=== PATIENT | male | born 1990 | race Hispanic/Latino ===

== ENCOUNTER 2017-12-16 17:57 | Emergency (ER) | payer SELFPAY ==
[2017-12-16] MEDS ORDERED: HYDROCODONE/CHLORPHEN 5 ML/OSYR ONE (21:13)
[2017-12-16] MEDS ORDERED: AZITHROMYCIN 250 MG TAB ONE (21:14)
--- NOTE | 2017-12-16 21:46 | RAD REPORT ---
EXAM DESCRIPTION: Asaf Single View12/16/2017 9:19 pm CLINICAL HISTORY: cough COMPARISON: none FINDINGS: The lungs appear clear of acute infiltrate. The heart is normal size IMPRESSION: No acute abnormalities displayed
--- NOTE | 2017-12-16 21:51 | EDPHYS ---
Physician Documentation [facility] Name: Jeremy Plasencia Age: 27 yrs Sex: Male : 1990 Arrival Date: 12/16/2017 Time: 18:01 Bed 12 Private MD: ED Physician Mohinder Mccarthy HPI: 12/16 18:51 This 27 yrs old Male presents to ER via Ambulatory with complaints of Chest kav Congestion. 20:32 Onset: The symptoms/episode began/occurred acutely, 1 week(s) ago. Associated signs and kav symptoms: Pertinent positives: congestion, cough. Modifying factors: The patient symptoms are alleviated by nothing, the patient symptoms are aggravated by nothing. The patient has not experienced similar symptoms in the past. The patient has not recently seen a physician. pt presents with acute c/o productive cough with green-colored phlegm, congestion. denies fever/chills. 20:34 The patient or guardian reports cough, that is intermittent, described as moderate, kav with productive sputum, that is green. Modifying factors:. Historical: - Allergies: 18:06 No Known Allergies; la1 - PMHx: 18:06 Hypertension; la1 - Immunization history:: Adult Immunizations up to date. - Social history:: Smoking status: Patient/guardian denies using tobacco. ROS: 20:34 Constitutional: Negative for fever, chills, and weight loss, Eyes: Negative for injury, kav pain, redness, and discharge, ENT: Negative for injury, pain, and discharge, Neck: Negative for injury, pain, and swelling, Cardiovascular: Negative for chest pain, palpitations, and edema, Abdomen/GI: Negative for abdominal pain, nausea, vomiting, diarrhea, and constipation, Back: Negative for injury and pain, : Negative for injury, bleeding, discharge, and swelling, MS/Extremity: Negative for injury and deformity, Skin: Negative for injury, rash, and discoloration, Neuro: Negative for headache, weakness, numbness, tingling, and seizure, Psych: Negative for depression, anxiety, suicide ideation, homicidal ideation, and hallucinations, Allergy/Immunology: Negative for hives, rash, and allergies, Endocrine: Negative for neck swelling, polydipsia, polyuria, polyphagia, and marked weight changes, Hematologic/Lymphatic: Negative for swollen nodes, abnormal bleeding, and unusual bruising. 20:34 Respiratory: Positive for cough, with green sputum. Exam: 20:34 Constitutional: This is a well developed, well nourished patient who is awake, alert, kav and in no acute distress. Head/Face: Normocephalic, atraumatic. Eyes: Pupils equal round and reactive to light, extra-ocular motions intact. Lids and lashes normal. Conjunctiva and sclera are non-icteric and not injected. Cornea within normal limits. Periorbital areas with no swelling, redness, or edema. ENT: Nares patent. No nasal discharge, no septal abnormalities noted. Tympanic membranes are normal and external auditory canals are clear. Oropharynx with no redness, swelling, or masses, exudates, or evidence of obstruction, uvula midline. Mucous membranes moist. Neck: Trachea midline, no thyromegaly or masses palpated, and no cervical lymphadenopathy. Supple, full range of motion without nuchal rigidity, or vertebral point tenderness. No Meningismus. Chest/axilla: Normal chest wall appearance and motion. Nontender with no deformity. No lesions are appreciated. Cardiovascular: Regular rate and rhythm with a normal S1 and S2. No gallops, murmurs, or rubs. Normal PMI, no JVD. No pulse deficits. Abdomen/GI: Soft, non-tender, with normal bowel sounds. No distension or tympany. No guarding or rebound. No evidence of tenderness throughout. Back: No spinal tenderness. No costovertebral tenderness. Full range of motion. Skin: Warm, dry with normal turgor. Normal color with no rashes, no lesions, and no evidence of cellulitis. MS/ Extremity: Pulses equal, no cyanosis. Neurovascular intact. Full, normal range of motion. Neuro: Awake and alert, GCS 15, oriented to person, place, time, and situation. Cranial nerves II-XII grossly intact. Motor strength 5/5 in all extremities. Sensory grossly intact. Cerebellar exam normal. Normal gait. Psych: Awake, alert, with orientation to person, place and time. Behavior, mood, and affect are within normal limits. 20:34 Respiratory: the patient does not display signs of respiratory distress, Respirations: normal, Breath sounds: bronchial sounds, that are moderate, are heard diffusely. Vital Signs: 18:06 BP 136 / 80; Pulse 92; Resp 19; Temp 98.3; Pulse Ox 100% on R/A; Weight 81.65 kg; la1 20:51 BP 130 / 66; Pulse 84; Resp 16; Pulse Ox 98% on R/A; mw2 MDM: 20:09 Medical screening is not applicable. [facility] 20:34 Data reviewed: vital signs, nurses notes, radiologic studies. [facility] 12/16 20:32 Order name: CXR XRAY; Complete Time: 21:49 [facility] 12/16 21:50 Interpretation: No acute disease. [facility] Administered Medications: 21:09 Drug: Tussionex Pennkinetic ER 5 ml Route: PO; la1 22:09 Follow up: Response: No adverse reaction bb 21: Drug: AZITHromycin 500 mg Route: PO; la1 22:09 Follow up: Response: No adverse reaction bb Disposition: 12/16/17 21:50 Discharged to Home. Impression: Bronchitis, not specified as acute or chronic. - Condition is Stable. - Discharge Instructions: Acute Bronchitis. - Prescriptions for Medrol (Geraldo) 4 mg Oral Tablets, Dose Pack - take 1 tablet by ORAL route as directed - follow package instructions; 1 packet. Guaifenesin AC 10- 100 mg/5 mL Oral Liquid - take 10 milliliter by ORAL route every 4 hours As needed; 240 milliliter. Zithromax Z- Geraldo 250 mg Oral Tablet - take 1 tablet by ORAL route as directed for 5 days Day 1 - take two (2) tablets one time. Day 2, 3, 4 , 5 take one (1) tablet once daily.; 6 tablet. - Medication Reconciliation Form, Thank You Letter, Work release form form. - Follow up: Private Physician; When: 1 - 2 days; Reason: If symptoms return, Recheck today's complaints, Continuance of care, Re-evaluation by your physician. - Problem is new. - Symptoms have improved. Addendum: 12/17/2017 22:30 Co-signature as Attending Physician, Mohinder Mccarthy MD I agree with the assessment and k dr plan of care. Signatures: Dispatcher [employer] EDSC Mohinder Mccarthy MD MD kdr Vern, Katherine, FOOD SERVICES MANAGER FOOD SERVICES MANAGER Mary Kay Kathleen RN RN bb Julio Madison RN RN la1 Corrections: (The following items were deleted from the chart) 12/16 22:10 21:50 12/16/2017 21:50 Discharged to Home. Impression: Bronchitis, not specified as bb acute or chronic. Condition is Stable. Discharge Instructions: Acute Bronchitis. Prescriptions for Zithromax Z-Geraldo 250 mg Oral Tablet - take 1 tablet by ORAL route as directed for 5 days Day 1 - take two (2) tablets one time. Day 2, 3, 4 , 5 take one (1) tablet once daily.; 6 tablet, Medrol (Geraldo) 4 mg Oral Tablets, Dose Pack - take 1 tablet by ORAL route as directed - follow package instructions; 1 packet, Guaifenesin AC 10-100 mg/5 mL Oral Liquid - take 10 milliliter by ORAL route every 4 hours As needed; 240 milliliter. and Forms are Medication Reconciliation Form, Thank You Letter, Antibiotic Education, Prescription Opioid Use. Follow up: Private Physician; When: 1 - 2 days; Reason: If symptoms return, Recheck today's complaints, Continuance of care, Re-evaluation by your physician. Problem is new. Symptoms have improved. kav
--- NOTE | 2017-12-16 21:51 | ER ---
Nurse's Notes [facility] Name: Jeremy Plasencia Age: 27 yrs Sex: Male : 1990 Arrival Date: 12/16/2017 Time: 18:01 Bed 12 Private MD: Diagnosis: Bronchitis, not specified as acute or chronic Presentation: 12/16 18:05 Presenting complaint: Patient states: cough and congestion for one week. Transition of la1 care: patient was not received from another setting of care. Onset of symptoms was December 16, 2017. Initial Sepsis Screen: Does the patient meet any 2 criteria? No. Patient's initial sepsis screen is negative. Does the patient have a suspected source of infection? No. Patient's initial sepsis screen is negative. Care prior to arrival: None. 18:05 Method Of Arrival: Ambulatory la1 18:05 Acuity: FABIÁN 4 la1 Triage Assessment: 18:07 General: Appears in no apparent distress. Behavior is calm, cooperative. Pain: Denies la1 pain. Respiratory: Airway is patent Respiratory effort is even, unlabored, Respiratory pattern is regular, symmetrical. Historical: - Allergies: 18:06 No Known Allergies; la1 - PMHx: 18:06 Hypertension; la1 - Immunization history:: Adult Immunizations up to date. - Social history:: Smoking status: Patient/guardian denies using tobacco. Screenin:38 Abuse screen: Denies threats or abuse. Nutritional screening: No deficits noted. la1 Nutritional screening: No deficits noted. Tuberculosis screening: No symptoms or risk factors identified. Fall Risk None identified. Assessment: 19:38 General: Appears in no apparent distress. Behavior is calm, cooperative. Pain: Denies la1 pain. Neuro: Level of Consciousness is awake, alert, obeys commands, Oriented to person, place, time, situation. Cardiovascular: Capillary refill < 3 seconds Patient's skin is warm and dry. Respiratory: Reports cough that is Airway is patent Respiratory effort is even, unlabored, Respiratory pattern is regular, symmetrical. GI: No signs and/or symptoms were reported involving the gastrointestinal system. : No signs and/or symptoms were reported regarding the genitourinary system. 21:08 Reassessment: Patient and/or family updated on plan of care and expected duration. Pain bb level reassessed. Patient is alert, oriented x 3, equal unlabored respirations, skin warm/dry/pink. 22:08 Reassessment: Patient and/or family updated on plan of care and expected duration. Pain bb level reassessed. Patient is alert, oriented x 3, equal unlabored respirations, skin warm/dry/pink. pt verbalized understanding of and agrees to plan of care discharge instructions given pt ambulated with steady gait to exit. Vital Signs: 18:06 BP 136 / 80; Pulse 92; Resp 19; Temp 98.3; Pulse Ox 100% on R/A; Weight 81.65 kg; la1 20:51 BP 130 / 66; Pulse 84; Resp 16; Pulse Ox 98% on R/A; mw2 ED Course: 18:01 Patient arrived in ED. mr 18:05 Triage completed. la1 18:06 Arm band placed on left wrist. la1 18:51 Kathia Adams FNP [facility]. kav 18:51 Mohinder Mccarthy MD is Attending Physician. ka 19:39 Call light in reach. la1 21:08 Mary Kay Bolton, KARAN is Primary Nurse. bb 21:17 X-ray completed. Portable x-ray completed in exam room. Patient tolerated procedure ml well. 21:20 CXR XRAY In Process Unspecified. EDMS 22:10 No provider procedures requiring assistance completed. Patient did not have IV access bb during this emergency room visit. Administered Medications: 21:09 Drug: Tussionex Pennkinetic ER 5 ml Route: PO; la1 22:09 Follow up: Response: No adverse reaction bb 21:09 Drug: AZITHromycin 500 mg Route: PO; la1 22:09 Follow up: Response: No adverse reaction bb Outcome: 21:50 Discharge ordered by . ka 22:10 Discharged to home ambulatory. bb 22:10 Condition: stable 22:10 Discharge instructions given to patient, Instructed on discharge instructions, follow up and referral plans. medication usage, Demonstrated understanding of instructions, follow-up care, medications, Prescriptions given X 3. 22:10 Patient left the ED. bb Signatures: Dispatcher [employer] EDMS Kathia Adams FNP SNUFF MAKERPaula Velarde mr Mary Kay Bolton, RN RN Suzanne Grace Lee, RN RN la1 Carol Perkins mw2
== END 2017-12-16 22:10 | disposition home or self-care (01) ==
LOC: ER 17:57
DX: J40 Bronchitis, not specified as acute or chronic (principal)
CPT/HCPCS: 71045; 99283